=== PATIENT | female | born 1935 | race Caucasian/White ===

== ENCOUNTER 2017-10-10 11:11 | Inpatient (IN) | payer OTHER ==
[~2017-10-10] VITALS: Ht 154.9 cm; Wt 70.1 kg
[~2017-10-10 11:11] MED LIST: ASPIR-LOW81 M1 PO; DIOVAN320 MG PO; GLYBURIDE5 MG PO; JANUVIA100 MG PO; Levaquin PO; MELOXICAM15 MG PO; METFORMIN HCL500 MG PO; METOPROLOL SUC200 MG PO; OMEPRAZOLE20 M2 PO; OMEPRAZOLE20 MG PO; PREVACID30 MG PO; SERTRALINE HCL50 MG PO; SIMVASTATIN40 MG PO; TOPROL XL100 MG PO; TYLENOL/CODE1 TABLE1 PO; VITAMIN D31000 UNI1 PO; ZOLOFT25 MG PO
[2017-10-10 12:11] LABS: BASOPHIL (%) 0.2 % (0-1); EOSINOPHIL (%) 0.5 % (0-5); HEMATOCRIT 35.9 % (36.0-46.0); HEMOGLOBIN 12.2 G/DL (11.9-15.5); IMMATURE GRANULOCYTE (%) 0.5 % (0.0-0.7); LYMPHOCYTE (%) 22.4 % (15-42); LYMPHOCYTE COUNT 1.3 K/uL (1.0-2.8); MCH 30.2 PG (29.0-34.0); MCV 88.9 FL (83-99); MONOCYTE (%) 6.4 % (3-12); MONOCYTE COUNT 0.4 K/uL (0-0.8); PLATELET COUNT 356 K/uL (156-360); RBC DIS.WIDTH-CV 12.8 % (11.8-14.6); RBC DIS.WIDTH-SD 41.7 % (39-53); RED BLOOD COUNT 4.04 M/uL (3.80-5.20); WHITE BLOOD COUNT 5.8 K/uL (4.1-10.2)
[2017-10-10 12:19] LABS: APPEARANCE CLEAR ((CLEAR)); BILIRUBIN NEGATIVE; BLOOD NEGATIVE; COLOR STRAW ((YELLOW)); GLUCOSE (STRIP) >=500; KETONES 20; LEUKOCYTES SMALL; NITRITE NEGATIVE; PROTEIN (STRIP) 30; SPECIFIC GRAVITY 1.031 (1.000-1.030); UROBILINOGEN 0.2 MG/DL (0.2-1.0)
[2017-10-10 12:21] LABS: ALBUMIN 4.1 g/dL (3.2-4.8); CHLORIDE 98 mEq/L (99-109); POTASSIUM 3.9 mEq/L (3.7-5.4); SODIUM 135 mEq/L (136-147)
[2017-10-10 12:24] LABS: TOTAL PROTEIN 7.4 g/dL (6.4-8.3)
[2017-10-10 12:26] LABS: TOTAL BILIRUBIN 0.5 mg/dL (0.0-1.0)
[2017-10-10 12:27] LABS: ALKALINE PHOSPHATASE 101 IU/L (3-129); CREATININE 1.4 mg/dL (0.6-1.3); GFR ESTIMATE (CALCULATED) 39 mL/min/
[2017-10-10 12:28] LABS: UREA NITROGEN (BUN) 10 mg/dL (9-23)
[2017-10-10 12:29] LABS: AST (GOT) 16 IU/L (2-34)
[2017-10-10 12:30] LABS: ALT (GPT) 13 IU/L (3-49)
[2017-10-10 12:34] LABS: BACTERIA RARE /HPF; EPITHELIAL CELLS RARE /HPF; MUCUS TRACE /LPF; UCUL ADDED? YES; WHITE BLOOD CELLS 15-20 /HPF (0-5)
[2017-10-10 12:34] LABS: TROP-I INTERPRETATION NEGATIVE; TROPONIN-I 0.05 ng/mL (0.0-0.30)
[2017-10-10 12:43] LABS: GLUCOSE 510 mg/dL (70-99)
[2017-10-10 13:54] LABS: TREPONEMA ANTIBODY NEGATIVE (NEGATIVE)
[2017-10-10 14:26] LABS: THYROTROPIN (TSH) 0.84 MIU/L (0.4-5.5)
[2017-10-10] MEDS ORDERED: GLUCOPHAGE500 MG PO (14:38)
[2017-10-10] MEDS ORDERED: TYLENOL REGULA325 MG PO (14:41)
[2017-10-10 17:59] VITALS: BP 184/91
[2017-10-10 18:10] LABS: TROP-I INTERPRETATION NEGATIVE; TROPONIN-I 0.05 ng/mL (0.0-0.30)
[2017-10-10 19:30] VITALS: BP 153/87
[2017-10-11 04:00] VITALS: BP 149/72
[2017-10-11 05:36] LABS: HEMATOCRIT 35.6 % (36.0-46.0); HEMOGLOBIN 11.7 G/DL (11.9-15.5); MCH 29.5 PG (29.0-34.0); MCHC 32.9 G/DL (30.0-36.0); MCV 89.9 FL (83-99); PLATELET COUNT 338 K/uL (156-360); RBC DIS.WIDTH-SD 42.5 % (39-53); RED BLOOD COUNT 3.96 M/uL (3.80-5.20); WHITE BLOOD COUNT 6.9 K/uL (4.1-10.2)
[2017-10-11 06:00] LABS: CHLORIDE 103 MEQ/L (99-109); GFR ESTIMATE (CALCULATED) 57 mL/min/; GLUCOSE 326 mg/dL (70-99); POTASSIUM 3.7 MEQ/L (3.7-5.4); SODIUM 137 MEQ/L (136-147); UREA NITROGEN (BUN) 10 mg/dL (9-23)
[2017-10-11 07:49] VITALS: BP 158/96
[2017-10-11 15:25] VITALS: BP 137/78
[2017-10-11 20:00] VITALS: BP 147/69
[2017-10-11 23:25] VITALS: BP 144/76
[2017-10-12 06:16] LABS: CHLORIDE 107 MEQ/L (99-109); CREATININE 0.9 MG/DL (0.6-1.3); GFR ESTIMATE (CALCULATED) > 59 mL/min/; GLUCOSE 185 mg/dL (70-99); POTASSIUM 3.4 MEQ/L (3.7-5.4); SODIUM 140 MEQ/L (136-147); UREA NITROGEN (BUN) 10 mg/dL (9-23)
[2017-10-12 08:16] VITALS: BP 184/88
[2017-10-12 09:27] LABS: HEMOGLOBIN A1c (GLYCOHEMOGLOB) 14.8 % (Below 5.7)
[2017-10-12 10:46] VITALS: BP 156/86
[2017-10-12 16:10] VITALS: BP 139/85
[2017-10-12 19:45] VITALS: BP 136/80
[2017-10-13 05:43] LABS: CHLORIDE 112 MEQ/L (99-109); CREATININE 0.9 MG/DL (0.6-1.3); GFR ESTIMATE (CALCULATED) > 59 mL/min/; GLUCOSE 201 mg/dL (70-99); POTASSIUM 3.4 MEQ/L (3.7-5.4); SODIUM 141 MEQ/L (136-147); UREA NITROGEN (BUN) 7 mg/dL (9-23)
[2017-10-13 09:20] VITALS: BP 159/78
[2017-10-13 11:12] VITALS: BP 110/65
[2017-10-13 15:37] VITALS: BP 181/91
[2017-10-13 18:07] VITALS: BP 176/81
[2017-10-13 19:30] VITALS: BP 152/81
[2017-10-14 05:34] LABS: CHLORIDE 108 MEQ/L (99-109); CREATININE 0.8 MG/DL (0.6-1.3); GFR ESTIMATE (CALCULATED) > 59 mL/min/; GLUCOSE 190 mg/dL (70-99); POTASSIUM 3.2 MEQ/L (3.7-5.4); SODIUM 138 MEQ/L (136-147); UREA NITROGEN (BUN) 7 mg/dL (9-23)
[2017-10-14 09:50] VITALS: BP 150/64
[2017-10-14 11:22] VITALS: BP 163/76
== END 2017-10-14 15:15 | disposition home or self-care (01) | DRG 689 ==
LOC: EME 11:11 → EDOF 15:06 → 4SOUTH 15:06 → EDOF 15:06 → ENRESERV 15:11 → 4SOUTH 17:29 → ENPENDDIS 10-14 13:11 → 4SOUTH 10-14 15:15
PROVIDERS: Emergency Medicine; Hospitalist; Internal Medicine
DX: N39.0 Urinary tract infection, site not specified (principal); F32.9 Major depressive disorder, single episode, unspecified; R41.0 Disorientation, unspecified; E78.5 Hyperlipidemia, unspecified; I10 Essential (primary) hypertension; R30.0 Dysuria; E87.6 Hypokalemia; G93.40 Encephalopathy, unspecified; R32 Unspecified urinary incontinence; N28.9 Disorder of kidney and ureter, unspecified; E11.65 Type 2 diabetes mellitus with hyperglycemia; E86.0 Dehydration; K21.9 Gastro-esophageal reflux disease without esophagitis; Z86.73 Personal history of transient ischemic attack (TIA), and cerebral infarction without residual deficits; Z91.14 Patient's other noncompliance with medication regimen; Z79.899 Other long term (current) drug therapy; Z79.84 Long term (current) use of oral hypoglycemic drugs
CPT/HCPCS: 70450; 71046; 80048; 80053; 81003; 82140; 82948; 83036; 84443; 84484; 85025; 85027; 86780; 87086; 93005; 97530 GP; 99281; 99285; G0378; G8978 GP CJ; G8979 GP CI; J0696; J1650; J1815; J2060; J7030

== ENCOUNTER 2017-10-19 15:10 | Inpatient (IN) | payer OTHER ==
[~2017-10-19] VITALS: Ht 152.4 cm; Wt 58.1 kg
[~2017-10-19 15:10] MED LIST changes: +GLUCOPHAGE500 MG PO; +TYLENOL REGULA325 MG PO
[2017-10-19 16:28] LABS: HEMOGLOBIN 11.3 G/DL (11.9-15.5); MCH 30.5 PG (29.0-34.0); MCHC 33.2 G/DL (30.0-36.0); MCV 91.9 FL (83-99); PLATELET COUNT 255 K/uL (156-360); RBC DIS.WIDTH-CV 13.4 % (11.8-14.6); RBC DIS.WIDTH-SD 45.7 % (39-53); WHITE BLOOD COUNT 6.9 K/uL (4.1-10.2)
[2017-10-19 16:37] LABS: ALBUMIN 3.4 g/dL (3.2-4.8); CHLORIDE 104 mEq/L (99-109); POTASSIUM 4.8 mEq/L (3.7-5.4); SODIUM 138 mEq/L (136-147)
[2017-10-19 16:40] LABS: GLUCOSE 153 mg/dL (70-99); TOTAL PROTEIN 6.4 g/dL (6.4-8.3)
[2017-10-19 16:42] LABS: TOTAL BILIRUBIN 0.4 mg/dL (0.0-1.0)
[2017-10-19 16:43] LABS: ALKALINE PHOSPHATASE 82 IU/L (3-129); GFR ESTIMATE (CALCULATED) 6 mL/min/
[2017-10-19 16:44] LABS: CREATININE 6.7 mg/dL (0.6-1.3); UREA NITROGEN (BUN) 60 mg/dL (9-23)
[2017-10-19 16:45] LABS: AST (GOT) 20 IU/L (2-34)
[2017-10-19 16:46] LABS: ALT (GPT) 18 IU/L (3-49)
[2017-10-19 17:24] LABS: APPEARANCE TURBID ((CLEAR)); BILIRUBIN NEGATIVE; BLOOD SMALL; COLOR YELLOW ((YELLOW)); GLUCOSE (STRIP) NEGATIVE; KETONES NEGATIVE; LEUKOCYTES LARGE; NITRITE NEGATIVE; PROTEIN (STRIP) 100; SPECIFIC GRAVITY 1.013 (1.000-1.030); UROBILINOGEN 0.2 MG/DL (0.2-1.0)
[2017-10-19 18:10] LABS: RED BLOOD CELLS RARE /HPF (0-5)
[2017-10-19 18:11] LABS: BACTERIA NONE SEEN /HPF; EPITHELIAL CELLS 1+ /HPF; MUCUS TRACE /LPF
[2017-10-19 18:19] LABS: CREATINE KINASE 162 IU/L (1-294)
[2017-10-19] MEDS ORDERED: LIPITOR20 MG PO (18:36)
[2017-10-19] MEDS ORDERED: TRADJENTA5 MG PO (18:36)
[2017-10-19] MEDS ORDERED: MILK OF MAGN PO (18:37)
[2017-10-19] MEDS ORDERED: FLEET ENEMA-AD118 ML PR (18:38)
[2017-10-19] MEDS ORDERED: DULCOLAX10 MG PR (18:38)
[2017-10-19 19:47] VITALS: BP 130/59
[2017-10-19 22:00] LABS: CHLORIDE 103 MEQ/L (99-109); POTASSIUM 5.1 MEQ/L (3.7-5.4); SODIUM 138 MEQ/L (136-147)
[2017-10-19 22:05] LABS: CREATININE 6.4 MG/DL (0.6-1.3); GFR ESTIMATE (CALCULATED) 7 mL/min/; GLUCOSE 114 mg/dL (70-99); UREA NITROGEN (BUN) 60 mg/dL (9-23)
[2017-10-19 22:43] LABS: UR CREATININE CONCENTRATION 142.9 MG/DL
[2017-10-19 23:22] VITALS: BP 126/60
[2017-10-20 05:53] LABS: HEMATOCRIT 33.1 % (36.0-46.0); HEMOGLOBIN 10.3 G/DL (11.9-15.5); MCH 29.1 PG (29.0-34.0); MCHC 31.1 G/DL (30.0-36.0); MCV 93.5 FL (83-99); PLATELET COUNT 270 K/uL (156-360); RBC DIS.WIDTH-CV 13.6 % (11.8-14.6); RBC DIS.WIDTH-SD 47.1 % (39-53); RED BLOOD COUNT 3.54 M/uL (3.80-5.20); WHITE BLOOD COUNT 5.8 K/uL (4.1-10.2)
[2017-10-20 06:34] LABS: ALBUMIN 2.8 G/DL (3.2-4.8); CHLORIDE 104 MEQ/L (99-109); CREATININE 7.2 MG/DL (0.6-1.3); GFR ESTIMATE (CALCULATED) 6 mL/min/; PHOSPHORUS 6.2 mg/dL (2.5-4.9); POTASSIUM 5.6 MEQ/L (3.7-5.4); SODIUM 141 MEQ/L (136-147); UREA NITROGEN (BUN) 66 mg/dL (9-23)
[2017-10-20 06:37] LABS: GLUCOSE 61 mg/dL (70-99)
[2017-10-20 07:11] VITALS: BP 116/58
[2017-10-20 09:41] LABS: HEPATITIS B SURFACE ANTIGEN Nonreactive; HEPATITIS C ANTIBODY Nonreactive
[2017-10-20 09:42] LABS: ANTI-HEPATITIS B CORE (TOTAL) Nonreactive; HEPATITIS B SURFACE ANTIBODY Nonreactive
[2017-10-20 18:20] VITALS: BP 88/48
[2017-10-20 19:45] VITALS: BP 119/65
[2017-10-20 23:17] VITALS: BP 86/46
[2017-10-21 06:15] VITALS: BP 141/63
[2017-10-21 06:34] LABS: HEMATOCRIT 27.9 % (36.0-46.0); HEMOGLOBIN 8.9 G/DL (11.9-15.5); MCH 29.7 PG (29.0-34.0); MCHC 31.9 G/DL (30.0-36.0); PLATELET COUNT 229 K/uL (156-360); RBC DIS.WIDTH-SD 47.5 % (39-53); WHITE BLOOD COUNT 8.6 K/uL (4.1-10.2)
[2017-10-21 07:01] LABS: ALBUMIN 2.6 G/DL (3.2-4.8); CHLORIDE 96 MEQ/L (99-109); PHOSPHORUS 7.2 mg/dL (2.5-4.9); POTASSIUM 4.7 MEQ/L (3.7-5.4); SODIUM 140 MEQ/L (136-147); UREA NITROGEN (BUN) 58 mg/dL (9-23)
[2017-10-21 07:02] LABS: CREATININE 5.8 MG/DL (0.6-1.3); GFR ESTIMATE (CALCULATED) 7 mL/min/; GLUCOSE 186 mg/dL (70-99)
[2017-10-21 07:17] VITALS: BP 75/39
[2017-10-21 07:32] LABS: C4 COMPLEMENT 26 MG/DL (10-40)
[2017-10-21 10:03] VITALS: BP 88/38
[2017-10-21 14:05] VITALS: BP 92/38
[2017-10-21 15:30] VITALS: BP 113/51
[2017-10-21 21:15] LABS: URINE TOTAL PROTEIN 59 MG/DL (0-10)
[2017-10-21 23:40] VITALS: BP 103/51
[2017-10-22 06:33] LABS: ALBUMIN 2.9 G/DL (3.2-4.8); CHLORIDE 96 MEQ/L (99-109); GLUCOSE 162 mg/dL (70-99); SODIUM 135 MEQ/L (136-147); UREA NITROGEN (BUN) 34 mg/dL (9-23)
[2017-10-22 06:40] LABS: CREATININE 3.5 MG/DL (0.6-1.3); GFR ESTIMATE (CALCULATED) 13 mL/min/; PHOSPHORUS 4.2 mg/dL (2.5-4.9); POTASSIUM 3.5 MEQ/L (3.7-5.4)
[2017-10-22 07:48] VITALS: BP 96/57
[2017-10-22 13:00] LABS: BASOPHIL (%) 0.2 % (0-1); EOSINOPHIL (%) 0.5 % (0-5); HEMOGLOBIN 8.4 G/DL (11.9-15.5); IMMATURE GRANULOCYTE (%) 0.5 % (0.0-0.7); LYMPHOCYTE (%) 12.7 % (15-42); LYMPHOCYTE COUNT 1.1 K/uL (1.0-2.8); MCH 29.7 PG (29.0-34.0); MCHC 32.3 G/DL (30.0-36.0); MCV 91.9 FL (83-99); MONOCYTE COUNT 0.5 K/uL (0-0.8); NEUTROPHIL (%) 80.1 % (45-76); NEUTROPHIL COUNT 6.7 K/uL (1.8-6.4); PLATELET COUNT 203 K/uL (156-360); RBC DIS.WIDTH-CV 13.9 % (11.8-14.6); RBC DIS.WIDTH-SD 47.5 % (39-53); RED BLOOD COUNT 2.83 M/uL (3.80-5.20); WHITE BLOOD COUNT 8.3 K/uL (4.1-10.2)
[2017-10-22 17:04] VITALS: BP 126/60
[2017-10-23 07:12] LABS: ALBUMIN 2.8 G/DL (3.2-4.8); CHLORIDE 97 MEQ/L (99-109); GLUCOSE 193 mg/dL (70-99); POTASSIUM 3.2 MEQ/L (3.7-5.4); SODIUM 139 MEQ/L (136-147); UREA NITROGEN (BUN) 21 mg/dL (9-23)
[2017-10-23 07:13] LABS: CREATININE 2.5 MG/DL (0.6-1.3); GFR ESTIMATE (CALCULATED) 20 mL/min/; PHOSPHORUS 2.4 mg/dL (2.5-4.9)
[2017-10-23 07:15] VITALS: BP 123/60
[2017-10-23 11:39] LABS: MAGNESIUM 1.5 mg/dl (1.3-2.7)
[2017-10-23 15:15] VITALS: BP 108/56
[2017-10-23 23:53] VITALS: BP 116/58
[2017-10-24 06:40] LABS: ALBUMIN 2.7 G/DL (3.2-4.8); CHLORIDE 98 MEQ/L (99-109); CREATININE 2.5 MG/DL (0.6-1.3); GFR ESTIMATE (CALCULATED) 20 mL/min/; GLUCOSE 179 mg/dL (70-99); POTASSIUM 3.2 MEQ/L (3.7-5.4); SODIUM 141 MEQ/L (136-147); UREA NITROGEN (BUN) 24 mg/dL (9-23)
[2017-10-24 06:41] LABS: MAGNESIUM 1.8 mg/dl (1.3-2.7)
[2017-10-24 08:00] VITALS: BP 106/63
[2017-10-24 16:32] VITALS: BP 123/70
[2017-10-24 17:21] LABS: APPEARANCE CLOUDY ((CLEAR)); BILIRUBIN NEGATIVE; BLOOD LARGE; COLOR YELLOW ((YELLOW)); GLUCOSE (STRIP) >=500; KETONES 20; LEUKOCYTES LARGE; NITRITE NEGATIVE; PROTEIN (STRIP) 100; SPECIFIC GRAVITY 1.008 (1.000-1.030); UROBILINOGEN 0.2 MG/DL (0.2-1.0)
[2017-10-24 17:38] LABS: EPITHELIAL CELLS 1+ /HPF; RED BLOOD CELLS TNTC /HPF (0-5); WHITE BLOOD CELLS TNTC /HPF (0-5)
[2017-10-24 23:32] VITALS: BP 122/60
[2017-10-25 06:26] LABS: ALBUMIN 2.8 G/DL (3.2-4.8); CHLORIDE 100 MEQ/L (99-109); GLUCOSE 168 mg/dL (70-99); PHOSPHORUS 1.7 mg/dL (2.5-4.9); POTASSIUM 3.8 MEQ/L (3.7-5.4); SODIUM 140 MEQ/L (136-147); UREA NITROGEN (BUN) 22 mg/dL (9-23)
[2017-10-25 06:27] LABS: GFR ESTIMATE (CALCULATED) 25 mL/min/; MAGNESIUM 1.3 mg/dl (1.3-2.7)
[2017-10-25 08:44] VITALS: BP 153/70
[2017-10-25 16:45] VITALS: BP 166/85
[2017-10-25 23:35] LABS: MYELOPEROXIDASE ANTIBODY (MPO) <1.0 AI (<1.0); PROTEINASE-3 ANTIBODY+ <1.0 AI (<1.0)
[2017-10-26 00:45] VITALS: BP 145/82
[2017-10-26 07:19] LABS: ALBUMIN 2.9 G/DL (3.2-4.8); CHLORIDE 102 MEQ/L (99-109); CREATININE 1.6 MG/DL (0.6-1.3); GFR ESTIMATE (CALCULATED) 33 mL/min/; GLUCOSE 218 mg/dL (70-99); POTASSIUM 3.7 MEQ/L (3.7-5.4); SODIUM 139 MEQ/L (136-147); UREA NITROGEN (BUN) 18 mg/dL (9-23)
[2017-10-26 07:30] VITALS: BP 182/80
[2017-10-26 07:44] LABS: PHOSPHORUS 2.5 mg/dL (2.5-4.9)
[2017-10-26 10:15] VITALS: BP 158/88
[2017-10-26] MEDS ORDERED: NOVOLOG 10100 UNITS/ SC (12:36)
== END 2017-10-26 15:10 | DRG 683 ==
LOC: EME 15:10 → 5EAST 17:21 → EDOF 17:21 → ENRESERV 17:31 → 5EAST 19:17
PROVIDERS: Emergency Medicine; Family Medicine; Internal Medicine
PROC: 05H533Z Insertion of Infusion Device into Right Subclavian Vein, Percutaneous Approach (ICD-10-PCS; principal; 2017-10-20)
PROC: B546ZZA Ultrasonography of Right Subclavian Vein, Guidance (ICD-10-PCS; principal; 2017-10-20)
PROC: 5A1D70Z Performance of Urinary Filtration, Intermittent, Less than 6 Hours Per Day (ICD-10-PCS; principal; 2017-10-20)
DX: N17.9 Acute kidney failure, unspecified (principal); T38.3X5A Adverse effect of insulin and oral hypoglycemic [antidiabetic] drugs, initial encounter; T46.5X5A Adverse effect of other antihypertensive drugs, initial encounter; E78.5 Hyperlipidemia, unspecified; I10 Essential (primary) hypertension; E87.2 Acidosis; E11.9 Type 2 diabetes mellitus without complications; K21.9 Gastro-esophageal reflux disease without esophagitis; E11.649 Type 2 diabetes mellitus with hypoglycemia without coma; F32.9 Major depressive disorder, single episode, unspecified; E83.39 Other disorders of phosphorus metabolism; E88.09 Other disorders of plasma-protein metabolism, not elsewhere classified; E83.42 Hypomagnesemia; I95.9 Hypotension, unspecified; Y71.2 Prosthetic and other implants, materials and accessory cardiovascular devices associated with adverse incidents; E87.6 Hypokalemia; N28.1 Cyst of kidney, acquired; D64.9 Anemia, unspecified; E86.0 Dehydration; E87.5 Hyperkalemia; T82.41XA Breakdown (mechanical) of vascular dialysis catheter, initial encounter; Z79.4 Long term (current) use of insulin; Z87.891 Personal history of nicotine dependence; Z99.2 Dependence on renal dialysis; Z87.442 Personal history of urinary calculi
CPT/HCPCS: 71045; 76770; 80048 91; 80053; 80069; 81003; 82436; 82550; 82570; 82575; 82948; 83605; 83735; 83935; 84156; 84300; 85025; 85027; 86021 90; 86038; 86160; 86334; 86335; 86430; 86704; 86706; 86803; 87086; 87106; 87340; 89190; 93005; 99281; 99285; C1751; J1644; J1815; J2405; J2997; J3475; J7030; J7040; J7050; J7070; J7120; P9047

== ENCOUNTER 2017-11-29 09:42 | Emergency (ER) | payer OTHER ==
[~2017-11-29] VITALS: Ht 162.6 cm; Wt 64.5 kg
[~2017-11-29 09:42] MED LIST changes: +DULCOLAX10 MG PR; +FLEET ENEMA-AD118 ML PR; +LIPITOR20 MG PO; +MILK OF MAGN PO; +NOVOLOG 10100 UNITS/ SC; +TRADJENTA5 MG PO
[2017-11-29 10:39] LABS: HEMATOCRIT 29.6 % (36.0-46.0); HEMOGLOBIN 9.8 G/DL (11.9-15.5); MCHC 33.1 G/DL (30.0-36.0); MCV 90.5 FL (83-99); PLATELET COUNT 282 K/uL (156-360); RBC DIS.WIDTH-CV 14.3 % (11.8-14.6); RBC DIS.WIDTH-SD 47.1 % (39-53); RED BLOOD COUNT 3.27 M/uL (3.80-5.20); WHITE BLOOD COUNT 7.5 K/uL (4.1-10.2)
[2017-11-29 10:50] LABS: CHLORIDE 103 mEq/L (99-109); POTASSIUM 4.8 mEq/L (3.7-5.4); SODIUM 138 mEq/L (136-147)
[2017-11-29 10:52] LABS: GLUCOSE 312 mg/dL (70-99)
[2017-11-29 10:55] LABS: CREATININE 1.2 mg/dL (0.6-1.3); GFR ESTIMATE (CALCULATED) 46 mL/min/
[2017-11-29 10:56] LABS: UREA NITROGEN (BUN) 19 mg/dL (9-23)
[2017-11-29] MEDS ORDERED: TRADJENTA5 MG PO (11:28)
[2017-11-29] MEDS ORDERED: MOTRIN600 MG PO (12:18)
[2017-11-29 13:15] VITALS: BP 140/83
== END 2017-11-29 13:15 | disposition home or self-care (01) ==
LOC: EME 09:42
PROVIDERS: Emergency Medicine
DX: S90.02XA Contusion of left ankle, initial encounter (principal); S90.01XA Contusion of right ankle, initial encounter; M25.561 Pain in right knee; W01.0XXA Fall on same level from slipping, tripping and stumbling without subsequent striking against object, initial encounter; Y93.01 Activity, walking, marching and hiking; I10 Essential (primary) hypertension; K21.9 Gastro-esophageal reflux disease without esophagitis; E78.5 Hyperlipidemia, unspecified; F32.9 Major depressive disorder, single episode, unspecified; Z87.442 Personal history of urinary calculi; Z90.49 Acquired absence of other specified parts of digestive tract; Z88.2 Allergy status to sulfonamides
CPT/HCPCS: 73564; 73610; 80048; 85027; 99281; 99283